=== PATIENT | male | born 1955 | race Caucasian/White ===

== ENCOUNTER 2023-12-19 11:39 | Day surgery (SDC) | payer MEDICARE, BC, SELFPAY ==
--- NOTE | 2023-12-19 13:07 | ITS.CL.IMPLP ---
Utilization Management Um Nurse - Implant Loop
Implant Loop
Procedure Report:
ILR implant
Date of Procedure: December 19, 2023
Patient : 1955
Procedure: Insertable loop recorder
Indication: Cryptogenic stroke
Implant: Reveal Linq2: [employer]; Model# [id number] ; Serial# [id number].
Technique: The patient was prepped and draped in the usual fashion. Local anesthetic was applied to the left prepectoral subcutaneous tissue. A subcutaneous pocket was created with blunt dissection. Hemostasis was excellent. The device was placed
in the pocket. The skin was closed with steri-strips. The estimated blood loss was minimal. There were no complications.
Final Programming: FVT 231 30/40 beats
VT 176 16 beats
Asystole 3 sec
[place] 30 bpm for 4 beats
AF On AF only.
Conclusion: Uncomplicated insertable loop implant.
Recommendation: Routine Reveal care.
cc: Dr. Edu Moura
== END 2023-12-19 13:03 | disposition home or self-care (01) ==
LOC: CATH 11:39
PROVIDERS: ATTENDING PHYSICIAN Internal Medicine Cardiovascular Disease; FAMILY PHYSICIAN Nurse Practitioner Family; OTHER PHYSICIAN Internal Medicine Cardiovascular Disease
DX: Z09 Encounter for follow-up examination after completed treatment for conditions other than malignant neoplasm (principal); Z86.73 Personal history of transient ischemic attack (TIA), and cerebral infarction without residual deficits; Z79.82 Long term (current) use of aspirin; K21.9 Gastro-esophageal reflux disease without esophagitis; I10 Essential (primary) hypertension; D47.2 Monoclonal gammopathy
CPT/HCPCS: 33285; C1764

== ENCOUNTER 2024-07-28 15:23 | Emergency (ER) | payer MEDICARE, BC, SELFPAY ==
[2024-07-28 15:26] VITALS: BP 184/99
--- NOTE | 2024-07-28 15:30 | ED.PDOC.TRB ---
ED Provider Triage
-
Patient seen by provider in Triage?: Seen in Triage
Attestation: A medical screening examination has been initiated by a qualified medical provider. Based on the assessment performed at this time, it has been determined that an emergent medical condition may exist and the patient has been informed
that further medical evaluation and possible additional diagnostic testing may be needed.
HPI: 68-year-old male with history of prior cerebellar infarct presents the emergency department for evaluation of tingling/paresthesias of the left arm. Reports after his prior infarct he had chronic temperature sensation loss to the left arm but
the symptoms he is currently reporting are new compared to prior stroke symptoms. States he gets worse when he is upset or stressed. Noted his blood pressure was quite elevated as well. No dizziness, vision changes, speech deficit, or walking
difficulty. He is on baby aspirin. Symptoms have been ongoing for the past 2 weeks
GENERAL: Alert , in no apparent distress
EYE: No visual abnormalities.
NECK: Trachea midline
ENT: No visible abnormalities.
LUNGS: No acute respiratory distress
NEUROLOGICAL: Alert and oriented
SKIN: Skin intact. No visible changes.
MUSCULOSKELETAL: Moving extremities normally
PSYCH: Normal and appropriate interaction.
Assessment: Patient without strong indication of acute CVA particular given the 2-week duration of symptoms. Will certainly evaluate with EKG and labs for cardiac etiology, given prior history of stroke and duration of symptoms greater than 1 to 2
weeks we will check CT of the head. No indication for stroke alert
This is a medical evaluation conducted in person to initiate diagnostic evaluation and provide initial therapeutics. Please see further documentation by the treating clinician.
[2024-07-28 15:48] LABS: % Basophils 0.4 % (0-2); % Eosinophils 2.5 % (0-6); % Immature Granulocytes 0.2 % (0-0.5); % Lymphocytes 31.7 % (20.5-51.1); % Monocytes 9.9 % (1.7-9.3); % Neutrophils 55.3 % (42.2-75.2); Absolute Eosinophils 0.1 10^3/uL (0-0.7); Absolute Lymphocytes 1.6 10^3/uL (1.2-3.4); Absolute Monocytes 0.5 10^3/uL (0.1-0.6); Absolute Neutrophils 2.8 10^3/uL (1.4-6.5); Hematocrit 41.5 % (39.0-52.0); Hemoglobin 14.8 g/dL (13.0-18.0); Mean Corp Hgb Conc. 35.7 g/dL (33.0-37.0); Mean Corpuscular Hgb 31.4 pg (27.0-31.0); Mean Corpuscular Volume 87.9 fL (80.0-94.0); Mean Platelet Volume 9.8 fL (7.4-10.4); Nucleated Red Blood Cells % 0 % (-); Platelet Count 190 10^3/uL (130-400); Red Blood Cell Count 4.72 10^6/uL (4.70-6.10); Red Cell Dist. Width 12.6 % (11.5-14.5); White Blood Cell Count 5.1 10^3/uL (4.8-10.8)
[2024-07-28 16:10] LABS: ALT (SGPT) 38 U/L (0-50); AST (SGOT) 30 U/L (17-59); Albumin 4.4 g/dl (3.5-5.0); Alkaline Phosphatase 75 U/L (38-126); Blood Urea Nitrogen 20 mg/dl (9-20); Calcium 9.3 mg/dl (8.4-10.2); Carbon Dioxide 27 mmol/L (22-30); Chloride 103 mmol/L (98-107); Glucose 100 mg/dl (70-99); Potassium 4.2 mmol/L (3.5-5.1); Sodium 142 mmol/L (135-145); Total Bilirubin 0.5 mg/dl (0.2-1.3); Total Protein 6.7 g/dl (6.3-8.2); eGFR > 60.00
[2024-07-28 16:21] LABS: Troponin I < 0.012 ng/ml
--- NOTE | 2024-07-28 16:59 | ED.GENMED ---
History of Present Illness
General
Chief Complaint: Numbness
Source: patient
Exam Limitations: none
Time Seen by Provider: 07/28/24 16:20
Nursing documentation reviewed up to this point in time: agreed with
History of Present Illness
History of Present Illness:
64-year-old male presents emergency room complaining of headache and numbness/paresthesias in his left arm. He reports that his arm sometimes falls asleep. This has happened for a long time. He denies any chest pain. His headache has improved
after starting Flonase. He denies any symptoms at this time.
Past History
Past History
ED Past Medical History: GERD, HTN, Hypercholesterolemia and Other (Kidney stones)
ED Past Surgical History: None
Social History
Tobacco: Non-smoker
Alcohol: None
Drug: None
Personal:
Living: with family
Family History
Family History: Hypertension
Review of Systems
Review of Systems
Allergies reviewed?: Yes
All Other Systems: Not applicable
Constitutional: Reports no symptoms
EENT: Reports no symptoms
Respiratory: Reports no symptoms
Cardiac: Reports no symptoms; Denies chest pain
ABD/GI: Reports no symptoms
: Reports no symptoms
Musculoskeletal: Reports no symptoms
Skin: Reports no symptoms
Neurological: Reports headache and numbness
Endocrine: Reports no symptoms
Hematologic/Lymphatic: Reports no symptoms
Psychiatric: Reports no symptoms
Phy Exam
Physical Exam
Physical Exam:
Physical Exam
General: no apparent distress, not acutely ill
Neck: supple. no meningeal signs. normal posterior pharynx
Heart: s1/s2 regular rate and rhythm, no murmur. equal radial
pulses.
HEENT: Pupils equal round reactive to light, EOMI
Lungs: no acute respiratory distress. clear bilaterally
Abdomen: normal bowel sounds. not tender. no CVAT
Neuro: alert and oriented. no focal neurological deficits cranial nerves II through XII intact
Skin: no rash
Psychiatric: well kept. interactive and cooperative
Extremities: no edema. no calf tenderness. negative homans. good distal pulses
Course
Orders/Labs/Results
Orders:
Orders
07/28/24 15:24
EKG [Electrocardiogram (*1)] Urgent
Reason for Study: Chest Pain
EKG- Treatment ONCE
07/28/24 15:29
CT Head W/o Iv Contrast Urgent
Comment:
Reason For Exam: L arm numbness
07/28/24 15:39
Complete Blood Count/With Diff Urgent
Comprehensive Metabolic Panel Urgent
Troponin I Urgent
Abnormal Lab Results
07/28/24
15:39
MCH 31.4 H pg
(27.0-31.0)
Monocytes % 9.9 H %
(1.7-9.3)
Glucose 100 H mg/dl
(70-99)
07/28/24 15:39
07/28/24 15:39
Vital Signs
Initial and Last Documented VS:
Initial Vital Signs
Temp Pulse Resp BP Pulse Ox
97.3 F 70 20 184/99 97
07/28/24 15:26 07/28/24 15:26 07/28/24 15:26 07/28/24 15:26 07/28/24 15:26
Last Documented Vital Signs
Temp Pulse Resp BP Pulse Ox
97.3 F 70 20 184/99 97
07/28/24 15:26 07/28/24 15:26 07/28/24 15:26 07/28/24 15:26 07/28/24 15:26
MDM/Problems Addressed
Differential Diagnosis Includes:
TIA, CVA
MDM/Problems Addressed:
68-year-old male with headache, paresthesias. Symptoms resolved, doubt CVA or TIA. Normal head CT, with exception of mild mucosal thickening in the ethmoid air cells.
Chronic conditions affecting care: HTN
Acute Exacerbation and/or Progression of Chronic Illness: HTN
*Radiology
Radiology exam reviewed: radiology read reviewed (ct head nad)
*Pulse Oximetry
Patient hypoxic: no
*EKG
Interpreted by ED Provider?: Yes
EKG Intrepretation Date: 07/28/24
EKG Intrepretation Time: 15:26
Interpretation: normal
Comparison EKG: no comparison EKG present
Heart Rate: 71
Rate: normal
Rhythm: sinus
[place]: normal axis
Interval: normal interval
QRS Pattern: normal QRS
Ischemia: no ischemia
*Lumber Hacker Interpretation
Rate: normal
Interpretation: normal
Heart Rate: 70
Rhythm: sinus
*Critical Care Note
Total Time (30-74mins, 75-104mins- exclusive of procedures): Not Applicable
Patient Management
Social determinants of health affecting care: Living situation
Escalation/DeEscalation of care consider admission/obs:
admit not indicated
ED Attending Note
-
Portions of this chart may have been created with voice recognition software.� Occasional wrong word or��sound alike� substitutions may have occurred due to the inherent limitations of voice recognition software.
Discharge Plan
Departure
Disposition: Home (Routine Discharge)
Date of Disposition: 07/28/24
Time of Disposition: 17:11
Patient with high blood pressure during this ER visit?: Yes
Condition: Good
Discharge Problem:
Paresthesia of left arm, Headache
Instructions: Paresthesia (DC), BLOOD PRESSURE
Prescriptions:
No Action
valsartan 160 mg Tablet
160 mg PO DAILY
aspirin 81 mg Tablet,Chewable
81 mg PO DAILY Qty: 30 0RF
atorvastatin 80 mg Tablet
80 mg PO DAILY
atenolol 25 mg Tablet
25 mg PO DAILY
omeprazole magnesium [Prilosec OTC] 20 mg Tablet,Delayed Release (Dr/Ec)
20 mg PO DAILY
acetaminophen [Tylenol Extra Strength] 500 mg Tablet
1,000 mg PO Q6H PRN (Reason: pain)
levofloxacin 500 mg Tablet
500 mg PO DAILY
Additional Instructions:
Follow up with primary care 3-7 days. Return for any concerns.
Interventions
Interventions:
*Risk Screen - Suicide Last Done: 07/28/24 15:26
*General Assessment Last Done: 07/28/24 15:26
*Neglect/Abuse Screening Last Done: 07/28/24 15:26
Discharge Date and Time
Print Language: RUSSIAN
[2024-07-28 17:23] VITALS: BP 164/92
== END 2024-07-28 17:24 | disposition home or self-care (01) ==
LOC: EMR 15:23
PROVIDERS: Physician Assistant; EMERGENCY PHYSICIAN Emergency Medicine; FAMILY PHYSICIAN Internal Medicine Geriatric Medicine
DX: R20.2 Paresthesia of skin (principal); R51.9 Headache, unspecified; E78.00 Pure hypercholesterolemia, unspecified; I10 Essential (primary) hypertension; K21.9 Gastro-esophageal reflux disease without esophagitis; Z86.73 Personal history of transient ischemic attack (TIA), and cerebral infarction without residual deficits; Z79.82 Long term (current) use of aspirin
CPT/HCPCS: 99284; 70450; 80053; 84484; 85025; 93005

== ENCOUNTER → 2024-08-15 10:55 | Outpatient (REF) | payer MEDICARE, BC, SELFPAY | LOC: RAD 10:55 | PROVIDERS: ATTENDING PHYSICIAN Nurse Practitioner Family | DX: R05.3 Chronic cough (principal); R09.89 Other specified symptoms and signs involving the circulatory and respiratory systems | CPT/HCPCS: 71046 ==

== ENCOUNTER → 2024-10-06 16:25 | Outpatient (REF) | payer MEDICARE, BC, SELFPAY | LOC: RAD 16:25 | PROVIDERS: ATTENDING PHYSICIAN Physician Assistant; FAMILY PHYSICIAN Internal Medicine Geriatric Medicine | DX: J32.8 Other chronic sinusitis (principal) | CPT/HCPCS: 70486 ==

== ENCOUNTER 2025-01-29 06:18 | Day surgery (SDC) | payer MEDICARE, BC, SELFPAY | END 2025-01-29 16:15 | disposition home or self-care (01) | LOC: GI 06:18 | PROVIDERS: ATTENDING PHYSICIAN Specialist | DX: Z12.11 Encounter for screening for malignant neoplasm of colon (principal); K57.30 Diverticulosis of large intestine without perforation or abscess without bleeding; Z86.0101 Personal history of adenomatous and serrated colon polyps | CPT/HCPCS: G0105 ==